=== PATIENT | male | born 1950 | race Caucasian/White ===

== ENCOUNTER → 2018-10-14 | Outpatient (CLI) | payer OTHER ==
[~2018-10-14] VITALS: Ht 172.7 cm; Wt 104.3 kg
[~2018-10-14] MED LIST: ASPIR 8181 MG PO; AZELEX30 GM TOP; CRESTOR20 MG PO; K-DUR 20 MEQ T20 MEQ PO; LASIX 20 MG TAB20 MG PO; NITROGLYCERIN0.4 MG SUBLING; NORVASC2.5 MG PO; PRAVACHOL40 MG PO; RANEXA500 MG PO; TOPROL XL25 MG PO; TYLENOL EXTRA500 MG PO; ZETIA10 MG PO
[2018-10-14 10:29] LABS: HEMATOCRIT 42.7 % (42.0-52.0); HEMOGLOBIN 14.4 gm/dL (14.0-18.0); MCHC 33.8 g/dL (28.0-37.0); MCV 97.7 fL (80.0-100.0); RBC 4.37 mil/uL (4.50-6.00); RDW 13.9 % (10.5-14.5); WBC 5.6 thou/uL (4.0-11.0)
[2018-10-14 10:33] VITALS: BP 125/70
[2018-10-14 10:39] LABS: CALCIUM 9.3 mg/dL (8.5-10.1); CREATININE 1.1 mg/dL (0.7-1.3); POTASSIUM 3.8 mmol/L (3.5-5.1)
--- NOTE | 2018-10-15 10:52 | 2DMMODE ---
[facility] [place] [employer] [place] [address] 2 D/M-MODE ECHOCARDIOGRAM Name: RUFINO LITTLE Room #: REG [facility]#: [id number] ������������� Admission: 10/14/18 ������������� Attend Phys: Gonzalez James, Discharge: ��� ������������� ��� Date of : 48 Date of Service: 10/15/18 1052 �� Report #: [id number] �������� ��������������������������������������������[id number] THIS REPORT FOR: //name// APPROVED REPORT Study performed: 10/14/2018 15:07:12 EXAM: Comprehensive 2D, Doppler, and color-flow Echocardiogram Patient Location: Out-Patient Room #: CVL Status: routine BSA: 2.15 HR: 50 bpm Rhythm: Bradycardia Other Information Study Quality: Adequate Technically limited study due to body habitus, inability to position patient. Indications CAD hX: CABG 2D Dimensions RVDd: 38.04 mm IVSd: 10.73 (7-11mm) LVOT Diam: 20.69 (18-24mm) LVDd: 48.55 mm PWd: 8.89 (7-11mm) LVDs: 37.20 (25-40mm) Aortic Root: 34.98 mm Volumes Left Atrial Volume (Systole) Single Plane 4CH: 51.82 mL Single Plane 2CH: 71.26 mL LA ESV Index: 31.00 mL/m2 Aortic Valve AoV Peak Dwight.: 2.48 m/s AO Peak Gr.: 24.63 mmHg LVOT Max P.29 mmHg AO Mean Gr.: 12.84 mmHg AO V2 Mean: 1.70 m/s LVOT Max V: 1.15 m/s AO V2 VTI: 59.77 cm GERARDO Vmax: 1.56 cm2 [facility] [place] [address] [address] 2 D/M-MODE ECHOCARDIOGRAM Name: RUFINO LITTLE Room #: [facility]#: [id number] ������������� Admission: 10/14/18 ������������� Attend Phys: Gonzalez James, Discharge: ��� ������������� ��� Date of : 48 Date of Service: 10/15/18 1052 �� Report #: [id number] �������� ��������������������������������������������[id number] Mitral Valve E/A Ratio: 0.6 MV Decel. Time: 366.33 ms MV E Max Dwight.: 0.61 m/s MV A Dwight.: 1.03 m/s MV PHT: 106.24 ms IVRT: 138.41 ms Pulmonary Valve PV Peak Dwight.: 1.03 m/s PV Peak Gr.: 4.23 mmHg Pulmonary Vein P Vein S: 0.53 m/s P Vein A: 0.28 m/s P Vein D: 0.21 m/s P Vein A Dur.: 101.5 msec P Vein S/D Ratio: 2.52 Tricuspid Valve TR Peak Dwight.: 2.29 m/s TR Peak Gr.: 20.98 mmHg Left Ventricle The left ventricle is normal size. There is normal left ventricular wall thickness. Left ventricular systolic function is low normal. LVEF is 50%. Mild diastolic dysfunction is present (impaired relaxation pattern). Right Ventricle The right ventricle is normal size. The right ventricular systolic function is normal. Atria The left atrium size is normal. The right atrium size is normal. Aortic Valve Aortic valve is moderately calcified. Mild aortic regurgitation. There is mild valvular aortic stenosis. Calculated aortic valve area is 1.6 cm2 with maximum pressure gradient of 25 mmHg and mean pressure gradient of 13 mmHg. Mitral Valve Mitral valve leaflets are thickened. Moderate mitral annular calcification. Trace to mild mitral regurgitation. No evidence of mitral valve stenosis. [facility] [address] [place] [address] 2 D/M-MODE ECHOCARDIOGRAM Name: RUFINO LITTLE Room #: [facility] [place]#: [id number] ������������� Admission: 10/14/18 ������������� Attend Phys: Gonzalez James, Discharge: ��� ������������� ��� Date of : 48 Date of Service: 10/15/18 1052 �� Report #: [id number] �������� ��������������������������������������������[id number] Tricuspid Valve The tricuspid valve is normal in structure. Trace to mild tricuspid regurgitation. Estimated PAP is 21mmHg plus the right atrial pressure. Pulmonic Valve The pulmonary valve is normal in structure. Mild pulmonic regurgitation. Great Vessels The aortic root is normal in size. Ascending aorta is not well visualized. IVC is normal in size and collapses >50% with inspiration. Pericardium There is no pericardial effusion. <Conclusion> The left ventricle is normal size. Left ventricular systolic function is low normal. LVEF is 50%. Mild diastolic dysfunction is present (impaired relaxation pattern). The right ventricle is normal size. The left atrium size is normal. Aortic valve is moderately calcified. Mild aortic regurgitation. There is mild valvular aortic stenosis. Calculated aortic valve area is 1.6 cm2 with maximum pressure gradient of 25 mmHg and mean pressure gradient of 13 mmHg. Mitral valve leaflets are thickened. Moderate mitral annular calcification. Trace to mild mitral regurgitation. Trace to mild tricuspid regurgitation. Estimated PAP is 21mmHg plus the right atrial pressure. The aortic root is normal in size. There is no pericardial effusion. ��������������������������������������������� <ELECTRONICALLY SIGNED> ���������������������������������������� By: Gonzalez James MD, FACC ��������������������������������������������� 10/15/18 105 51 51 Gonzalez James MD, FACC /INF
--- NOTE | 2018-10-15 14:30 | EKG ---
[place] [address] [facility] [place] [employer] [address] ELECTROCARDIOGRAM REPORT Name: RUFINO LITTLE Room #: REG [facility]#: [id number] ������������������ Admission: 10/14/18 ������������������ Attend Phys: Gonzalez James MD, Discharge: ������������������ Date of : 48 Report #: [id number] ����������������������������������������������������������������� [id number] THIS REPORT FOR: //name// [facility] Test Date: 2018-10-14 Test Time: 10:09:51 Pat Name: RUFINO LITTLE Department: Room: Gender: M Technical Service Specialist: [facility] : 1950 Requested By: Gonzalez James Order Number: [id number] MD: Dimitri Resendiz Measurements Intervals [place] Rate: 63 P: 29 RI: 161 QRS: -31 QRSD: 107 T: 83 QT: 437 QTc: 448 Interpretive Statements Sinus rhythm Probable left atrial enlargement Left axis deviation Probable anteroseptal infarct, old Nonspecific ST segment abnormalities, lateral leads No previous ECG available for comparison Electronically Signed On 10-15-2018 14:30:19 CDT by Dimitri Resendiz [email or web address] ��������������������������������������������� <ELECTRONICALLY SIGNED> ���������������������������������������� By: Dimitri Resendiz MD ��������������������������������������������� 10/15/18 1430 1009 MD MALAIKA Fernandez
--- NOTE | 2018-10-15 17:35 | CATHLAB ---
[facility] [address] [place] [address] INVASIVE PROCEDURE REPORT Name: RUFINO LITTLE Room #: REG [facility]#: [id number] ������������� Admission: 10/14/18 ������������� Attend Phys: Gonzalez James, Discharge: ��� ������������� ��� Date of : 48 Date of Service: 10/15/18 1734 �� Report #: [id number] �������� ��������������������������������������������[id number] THIS REPORT FOR: //name// APPROVED REPORT Study performed: 10/14/2018 13:17:46 Patient Details Patient Status: In-Patient Room #: The patient is a 68 year-old male Event Personnel Gonzaelz James Syrup Blender, Matteo Campos RN RN, Jack Ohara RTR Josefa Mcfarlane Amber Monitor, Lety Craft RN tea bag machine tender Performed Left Heart Cath Coronaries, Bypass Grafts [id number] CCORCABG Indication Chest pain Procedure Narrative The Right Groin^ was infiltrated with 1% Lidocaine subcutaneous anesthesia. A PINNACLE 6FR Sheath #[id number] sheath was inserted into the RFA^. Coronary angiography was performed using coronary diagnostic catheters. The right coronary system was accessed and visualized with a JR4 catheter. The left coronary system was accessed and visualized with a JL4 catheter. The left ventricle was accessed and visualized with a PIGTAIL catheter. Left ventriculogram was performed in 30 degree projection. Closure device was deployed with a 6 Fr MYNX. The patient tolerated the procedure well and there were no complications associated with the procedure. There was no hematoma. Intraoperative Conscious Sedation Sedation start time: 13.53 Case end Time: 14.41 Fentanyl 50 mcg Fluoro Time: 13.27 minutes Dose: DAP 46180.00 cGycm2 2132 mGy Contrast Type and Amount: Omnipaque 160 ml [facility] [address] [place] [address] INVASIVE PROCEDURE REPORT Name: RUFINO LITTLE Room #: [facility]#: [id number] ������������� Admission: 10/14/18 ������������� Attend Phys: Gonzalez James, Discharge: ��� ������������� ��� Date of : 48 Date of Service: 10/15/18 1734 �� Report #: [id number] �������� ��������������������������������������������[id number] Hemodynamics The aortic pressure is 126/66 mmHg with a mean of 87 mmHg. The left ventricular pressure is 122/10 mmHg with a mean of mmHg. The left ventricular end diastolic pressure is 19 mmHg. Conclusion #1 normal left ventricular size and LV function lower limits of normal EF 50% range #2 left main is subtotally occluded faintly filling a high-grade proximal circumflex and LAD with minimal distribution #3 and SVG to a proximal OM is widely patent with diffuse disease and retrograde filling of the circumflex OM #4 a second SVG to a distal OM is also intact with mild diffuse disease moderate ostial disease on that graft is noted #5 dominant right is occluded #6 a large mildly ectatic vein graft is patent to a small PDA system normal flow however is noted #7 a PARSONS to LAD flush injected wide patency of the PARSONS and diffuse disease in this LAD is extensive the apex Recommendations and plan: Continue aggressive risk factor modification. No indication for intervention coronary-koo. ��������������������������������������������� <ELECTRONICALLY SIGNED> ���������������������������������������� By: Gonzalez James MD, [facility] ��������������������������������������������� 10/15/18 1734 1734 1734 Gonzalez James MD, FACC /INF
== END | disposition home or self-care (01) ==
LOC: CATH 09:45
PROVIDERS: Internal Medicine Cardiovascular Disease
DX: I25.810 Atherosclerosis of coronary artery bypass graft(s) without angina pectoris (principal); I08.3 Combined rheumatic disorders of mitral, aortic and tricuspid valves; I65.23 Occlusion and stenosis of bilateral carotid arteries; I70.1 Atherosclerosis of renal artery; I11.0 Hypertensive heart disease with heart failure; I50.30 Unspecified diastolic (congestive) heart failure; E78.00 Pure hypercholesterolemia, unspecified; Z95.1 Presence of aortocoronary bypass graft; Z82.49 Family history of ischemic heart disease and other diseases of the circulatory system; Z87.891 Personal history of nicotine dependence; Z98.890 Other specified postprocedural states; Z98.41 Cataract extraction status, right eye; Z98.42 Cataract extraction status, left eye; Z79.82 Long term (current) use of aspirin; Z79.899 Other long term (current) drug therapy

== ENCOUNTER → 2019-05-09 | Outpatient (CLI) | payer OTHER | LOC: SJCVC 10:12 → SJCVCIMAG 10:12 | PROVIDERS: ATTEND Internal Medicine Cardiovascular Disease | DX: I65.23 Occlusion and stenosis of bilateral carotid arteries (principal); I11.9 Hypertensive heart disease without heart failure; R94.31 Abnormal electrocardiogram [ECG] [EKG]; I25.810 Atherosclerosis of coronary artery bypass graft(s) without angina pectoris; E78.00 Pure hypercholesterolemia, unspecified; I35.0 Nonrheumatic aortic (valve) stenosis; R53.83 Other fatigue; Z95.1 Presence of aortocoronary bypass graft; Z82.49 Family history of ischemic heart disease and other diseases of the circulatory system; Z87.891 Personal history of nicotine dependence; Z79.899 Other long term (current) drug therapy ==

== ENCOUNTER → 2019-11-10 | Outpatient (CLI) | payer OTHER | LOC: SJCVCIMAG 08:13 | PROVIDERS: ATTEND Internal Medicine Cardiovascular Disease | DX: I08.2 Rheumatic disorders of both aortic and tricuspid valves (principal); I49.3 Ventricular premature depolarization; I11.9 Hypertensive heart disease without heart failure; I25.10 Atherosclerotic heart disease of native coronary artery without angina pectoris; I25.810 Atherosclerosis of coronary artery bypass graft(s) without angina pectoris; I65.23 Occlusion and stenosis of bilateral carotid arteries; E78.01 Familial hypercholesterolemia; Z79.899 Other long term (current) drug therapy; Z87.891 Personal history of nicotine dependence ==

== ENCOUNTER → 2020-09-07 | Outpatient (CLI) | payer OTHER | LOC: SJCVCIMAG 07:23 | PROVIDERS: ATTEND Internal Medicine Cardiovascular Disease | DX: I65.23 Occlusion and stenosis of bilateral carotid arteries (principal); R94.31 Abnormal electrocardiogram [ECG] [EKG]; I25.810 Atherosclerosis of coronary artery bypass graft(s) without angina pectoris; I35.0 Nonrheumatic aortic (valve) stenosis; I10 Essential (primary) hypertension; E78.01 Familial hypercholesterolemia; Z90.49 Acquired absence of other specified parts of digestive tract; Z95.1 Presence of aortocoronary bypass graft; Z98.61 Coronary angioplasty status; Z98.890 Other specified postprocedural states; Z88.0 Allergy status to penicillin; Z79.82 Long term (current) use of aspirin; Z79.899 Other long term (current) drug therapy; Z87.891 Personal history of nicotine dependence; Z82.49 Family history of ischemic heart disease and other diseases of the circulatory system ==

== ENCOUNTER → 2020-12-14 | Outpatient (CLI) | payer OTHER | LOC: SJCVCIMAG 09:13 | PROVIDERS: ATTEND Internal Medicine Cardiovascular Disease | DX: R94.31 Abnormal electrocardiogram [ECG] [EKG] (principal); I08.8 Other rheumatic multiple valve diseases; I11.9 Hypertensive heart disease without heart failure; I25.810 Atherosclerosis of coronary artery bypass graft(s) without angina pectoris; I65.23 Occlusion and stenosis of bilateral carotid arteries; E78.00 Pure hypercholesterolemia, unspecified; Z88.0 Allergy status to penicillin; Z79.82 Long term (current) use of aspirin; Z79.899 Other long term (current) drug therapy; Z87.891 Personal history of nicotine dependence ==

== ENCOUNTER → 2021-01-25 | Outpatient (CLI) | payer OTHER | LOC: SJCVCIMAG 10:01 | PROVIDERS: ATTEND Internal Medicine Cardiovascular Disease | DX: R94.31 Abnormal electrocardiogram [ECG] [EKG] (principal); I65.23 Occlusion and stenosis of bilateral carotid arteries; I25.10 Atherosclerotic heart disease of native coronary artery without angina pectoris; I10 Essential (primary) hypertension; E78.00 Pure hypercholesterolemia, unspecified; R06.00 Dyspnea, unspecified; I35.0 Nonrheumatic aortic (valve) stenosis; E78.5 Hyperlipidemia, unspecified; Z79.82 Long term (current) use of aspirin; Z79.899 Other long term (current) drug therapy; Z88.0 Allergy status to penicillin; Z87.891 Personal history of nicotine dependence ==